=== PATIENT | female | born 1975 | race Caucasian/White ===

== ENCOUNTER 2021-03-10 20:06 | Emergency (ER) | payer OTHER ==
--- NOTE | 2021-03-10 20:49 | EDM.PDOC ---
ED HPI GENERAL MEDICAL PROBLEM - General Chief Complaint: Cardiovascular Problem Stated Complaint: HYPERTENSION, LIGHT HEADED Time Seen by Provider: 03/10/21 20:15 Source of Information: Reports: Patient History Limitations: Reports: No Limitations - History of Present Illness INITIAL COMMENTS - FREE TEXT/NARRATIVE: Patient states she is had a little bit of lightheadedness dull headache she rates about a 4 out of 10 to the back of her head may be a second or 2 of blurry vision that occurred yesterday the other symptoms have been ongoing since Sunday. She also mentions that she had a little bit of chest tightness on the left side that did not radiate anywhere that she rated about a 3 out of 10 yesterday none today she denies any shortness of breath nausea or vomiting diaphoresis. She states she is been seeing her chiropractor over the last month every couple days secondary to ongoing bladder issues where she is having her bladder realigned and is also done some spinal manipulation in her neck. She said none of the symptoms above have been caused from this. She says she has noted her blood pressure has been a little elevated the last couple of days 150/90-lena and she normally is in the 120 range. She also states that she has had some swelling to her ankles over the last 3 days. She has been eating normally but only drinking about 1 yeti cup of water a day. She has no medical issues takes no medication past surgical history includes a bladder sling She does not drink does not smoke Duration: Day(s): Location: Reports: Head, Chest Severity: Mild Improves with: Reports: None Worsens with: Reports: None Associated Symptoms: Reports: Chest Pain, Headaches. 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 Denies: Claudication, Dyspnea on Exertion, Orthopnea, Palpitations, PND, Syncope Endocrine: Reports: No Symptoms GI/Abdominal: Reports: No Symptoms : Reports: No Symptoms Musculoskeletal: Reports: No Symptoms Skin: Reports: No Symptoms Neurological: Reports: No Symptoms Psychiatric: Reports: No Symptoms Hematologic/Lymphatic: Reports: No Symptoms Immunologic: Reports: No Symptoms ED EXAM, GENERAL - Physical Exam Exam: See Below Exam Limited By: No Limitations General Appearance: Alert, WD/WN, No Apparent Distress Eye Exam: Bilateral Eye: EOMI, Normal Inspection, PERRL Ears: Normal External Exam, Normal Canal, Hearing Grossly Normal, Normal TMs Nose: Normal Inspection, Normal Mucosa, No Blood Throat/Mouth: Normal Inspection, Normal Lips, Normal Teeth, Normal Gums, Normal Oropharynx, Normal Voice, No Airway Compromise Head: Atraumatic, Normocephalic Neck: Normal Inspection, Supple, Non-Tender, Full Range of Motion. No: Carotid Bruit Respiratory/Chest: No Respiratory Distress, Lungs Clear, Normal Breath Sounds, No Accessory Muscle Use, Chest Non-Tender Cardiovascular: Normal Peripheral Pulses, Regular Rate, Rhythm, No Edema, No Gallop, No JVD, No Murmur, No Rub. No: Bradycardia, Tachycardia GI/Abdominal: Normal Bowel Sounds, Soft, Non-Tender, No Organomegaly, No Distention, No Abnormal Bruit Back Exam: Normal Inspection, Full Range of Motion Extremities: Normal Inspection, Normal Range of Motion, Non-Tender, Normal Capillary Refill, Pedal Edema, Other (+1 bilateral ankles). 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 EKG normal sinus rhythm no acute findings noted Urinalysis negative nitrites negative leukocytes negative protein there is noted some bacteria we will set of culture and sensitivity antibiotics are held at this time until pending culture and sensitivity returns. Patient given hydrochlorothiazide 25 mg 1 tablet p.o. now to see if this helps reduce blood pressure and lower extremity edema. Spoke with the patient she is okay with course of treatment diagnosis and disposition home She states she will follow-up with her primary care provider Blood pressure was rechecked 142/78 patient has no complaints Last Recorded V/S: Last Vital Signs Temp 36.8 C 03/10/21 20:09 Pulse 71 03/10/21 20:09 Resp 17 03/10/21 20:09 BP 157/87 H 03/10/21 20:09 Pulse Ox 99 03/10/21 20:09 - Orders/Labs/Meds Orders: Active Orders 24 hr Category Date Time Status EKG Documentation Completion [RC] ASDIRECTED Care 03/10/21 20:22 Active CULTURE URINE [RM] Stat Lab 03/10/21 21:21 Ordered EKG 12 Lead [EK] Stat Ther 03/10/21 20:22 Ordered Labs: Laboratory Tests 03/10/21 03/10/21 03/10/21 Range/Units 20:30 20:30 20:30 WBC 12.9 H (4.0-10.2) K/uL RBC 4.95 (3.77-5.09) M/uL Hgb 14.0 (11.7-15.5) g/dL Hct 41.5 (34.0-46.0) % MCV 83.8 L (84.0-98.0) fL MCH 28.3 (28.2-33.3) pg MCHC 33.7 (31.7-36.0) g/dL RDW 13.3 (11.2-14.1) % Plt Count 243 (150-350) K/uL Neut % (Auto) 60.0 (45.0-80.0) % Lymph % (Auto) 30.1 (10.0-50.0) % [place] % (Auto) 8.0 (2.0-14.0) % Eos % (Auto) 1.6 (0.0-5.0) % Baso % (Auto) 0.3 (0.0-2.0) % Neut # (Auto) 7.72 H (1.40-7.00) K/uL Lymph # (Auto) 3.87 H (0.50-3.50) K/uL [place] # (Auto) 1.03 H (0.00-1.00) K/uL Eos # (Auto) 0.21 (0.00-0.50) K/uL Baso # (Auto) 0.04 (0.00-0.20) K/uL Sodium 141 (136-145) mmol/L Potassium 4.0 (3.5-5.1) mmol/L Chloride 104 (98-107) mmol/L Carbon Dioxide 24.1 (21.0-32.0) mmol/L Anion Gap 12.9 (7-15) meq/L BUN 16 (7-18) mg/dL Creatinine 0.72 (0.51-1.17) mg/dL Est Cr Clr Drug Dosing 82.51 mL/min Estimated GFR (MDRD) > 60 mL/min Glucose 87 (70-99) mg/dL Calcium 9.1 (8.5-10.1) mg/dL Total Bilirubin 0.3 (0.2-1.0) mg/dL AST 15 (15-37) U/L ALT 31 (12-78) U/L Alkaline Phosphatase 60 (46-116) IU/L Troponin I 0.000 (0.000-0.056) ng/mL Total Protein 7.8 (6.4-8.2) g/dL Albumin 4.1 (3.4-5.0) g/dL Specimen Type Urine Color Urine Appearance Urine pH (5.0-9.0) Ur Specific [place] (1.005-1.030) Urine Protein (NEGATIVE) mg/dL Urine Glucose (UA) (NEGATIVE) mg/dL Urine Ketones (NEGATIVE) mg/dL Urine Occult Blood (NEGATIVE) Urine Nitrite (NEGATIVE) Urine Bilirubin (NEGATIVE) Urine Urobilinogen (0.2-1.0) E.U./dL Ur Leukocyte Esterase (NEGATIVE) Urine RBC /HPF Urine WBC /HPF Ur Epithelial Cells /LPF Urine Bacteria (NONE TO FEW) /HPF Urine Mucus (NEGATIVE) /LPF 03/10/21 Range/Units 20:55 WBC (4.0-10.2) K/uL RBC (3.77-5.09) M/uL Hgb (11.7-15.5) g/dL Hct (34.0-46.0) % MCV (84.0-98.0) fL MCH (28.2-33.3) pg MCHC (31.7-36.0) g/dL RDW (11.2-14.1) % Plt Count (150-350) K/uL Neut % (Auto) (45.0-80.0) % Lymph % (Auto) (10.0-50.0) % [place] % (Auto) (2.0-14.0) % Eos % (Auto) (0.0-5.0) % Baso % (Auto) (0.0-2.0) % Neut # (Auto) (1.40-7.00) K/uL Lymph # (Auto) (0.50-3.50) K/uL [place] # (Auto) (0.00-1.00) K/uL Eos # (Auto) (0.00-0.50) K/uL Baso # (Auto) (0.00-0.20) K/uL Sodium (136-145) mmol/L Potassium (3.5-5.1) mmol/L Chloride (98-107) mmol/L Carbon Dioxide (21.0-32.0) mmol/L Anion Gap (7-15) meq/L BUN (7-18) mg/dL Creatinine (0.51-1.17) mg/dL Est Cr Clr Drug Dosing mL/min Estimated GFR (MDRD) mL/min Glucose (70-99) mg/dL Calcium (8.5-10.1) mg/dL Total Bilirubin (0.2-1.0) mg/dL AST (15-37) U/L ALT (12-78) U/L Alkaline Phosphatase (46-116) IU/L Troponin I (0.000-0.056) ng/mL Total Protein (6.4-8.2) g/dL Albumin (3.4-5.0) g/dL Specimen Type Urinblad Urine Color Yellow Urine Appearance Slightly cloudy Urine pH 6.0 (5.0-9.0) Ur Specific [place] >= 1.030 (1.005-1.030) Urine Protein Negative (NEGATIVE) mg/dL Urine Glucose (UA) Negative (NEGATIVE) mg/dL Urine Ketones Negative (NEGATIVE) mg/dL Urine Occult Blood Trace-lysed H (NEGATIVE) Urine Nitrite Negative (NEGATIVE) Urine Bilirubin Negative (NEGATIVE) Urine Urobilinogen 0.2 (0.2-1.0) E.U./dL Ur Leukocyte Esterase Trace H (NEGATIVE) Urine RBC 0-5 /HPF Urine WBC 50-75 H /HPF Ur Epithelial Cells Moderate H /LPF Urine Bacteria Moderate H (NONE TO FEW) /HPF Urine Mucus Few H (NEGATIVE) /LPF Meds: Medications Discontinued Medications Generic Name Dose Route Start Last Admin Trade Name Della PRN Reason Stop Dose Admin Hydrochlorothiazide 25 mg 03/10/21 21:01 Hydrochlorothiazide 25 Mg Tab PO 03/10/21 21:02 ONETIME ONE Departure - Departure Time of Disposition: 21:25 Disposition: Home, Self-Care 01 Condition: Good Clinical Impression: Lightheadedness, Hypertension, Headache, Chest pain Instructions: Dizziness, [id number] Referrals: Yvan Weaver PA [Primary Care Provider] - Forms: ED Department Discharge Additional Instructions: Follow-up with your primary care provider in the next 24 to 48 hours Make sure you drink plenty of fluids I recommend 6 to 8 glasses of water a day Continue to check your blood pressure twice a day the same time every day for blood pressure log into you see your primary care provider Return to the emergency room if anything changes or gets worse Sepsis Event Note (ED) - Evaluation Sepsis Screening Result: No Definite Risk - Focused Exam Vital Signs: Vital Signs Temp Pulse Resp BP Pulse Ox 03/10/21 20:09 36.8 C 71 17 157/87 H 99 - Problem List & Annotations (1) Chest pain SNOMED Code(s): 58164183 Code(s): R07.9 - CHEST PAIN, UNSPECIFIED Status: Acute (2) Headache SNOMED Code(s): 68997938 Code(s): R51.9 - HEADACHE, UNSPECIFIED Status: Acute (3) Hypertension SNOMED Code(s): 82058801 Code(s): I10 - ESSENTIAL (PRIMARY) HYPERTENSION Status: Acute (4) Lightheadedness SNOMED Code(s): 920650155 Code(s): R42 - DIZZINESS AND GIDDINESS Status: Acute - My Orders Last 24 Hours: My Active Orders 03/10/21 20:22 EKG Documentation Completion [RC] ASDIRECTED EKG 12 Lead [EK] Stat 07/22/21 21:21 CULTURE URINE [RM] Stat - Assessment/Plan Last 24 Hours: My Active Orders 03/10/21 20:22 EKG Documentation Completion [RC] ASDIRECTED EKG 12 Lead [EK] Stat 03/10/21 21:21 CULTURE URINE [RM] Stat
[2021-03-10 20:56] LABS: ANION GAP 12.9 meq/L (7-15); CHLORIDE,CL 104 mmol/L (98-107); SODIUM,NA 141 mmol/L (136-145)
[2021-03-10] MEDS: Hydrochlorothiazide 25 MG Tab PO ONE (21:48)
--- NOTE | 2021-03-13 14:08 | PCM.SN.2 ---
- Free Text/Narrative Note: Patient urine culture returns with Staphylococcus aureus growth 50,000-100,000 CFU. patient is not on antibiotics. Multiple phone calls later, patient states she has some symptoms, gets frequent UTI, would like treatment, not allergic to anything. Given bactrim DS one tab bid for three days. Culture is sensitive to this. 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
== END 2021-03-10 21:50 | disposition home or self-care (01) ==
LOC: LL.ED 20:06
DX: R07.89 Other chest pain (principal); R42 Dizziness and giddiness; R51.9 Headache, unspecified; I10 Essential (primary) hypertension
CPT/HCPCS: 36415; 80053; 81001; 84484; 85025; 87086; 87186; 93005; 93010; 99284; 99285-25; A9270-GY

== ENCOUNTER 2021-06-06 18:06 | Emergency (ER) | payer OTHER ==
[2021-06-06] MEDS ORDERED: HYDROmorphone 1 MG/ML Syringe IM ONE (18:23)
--- NOTE | 2021-06-06 18:28 | EDM.PDOC ---
ED HPI GENERAL MEDICAL PROBLEM - General Chief Complaint: Laceration Stated Complaint: cut hand Time Seen by Provider: 06/06/21 18:20 Source of Information: Reports: Patient, Family History Limitations: Reports: No Limitations - History of Present Illness INITIAL COMMENTS - FREE TEXT/NARRATIVE: Patient presents to the Ed for right dorsal hand laceration. She was mowing and the security bar that her had just oiled was not secured and came down onto her right dorsal hand. report a laceration to the 2nd MCP area, some numbness to the finger and ability to move it slightly. Is right handed, otherwise healthy, states tetanus is up to date Onset: Today Duration: Minutes: Location: Reports: Upper Extremity, Right Treatments FISH BUTCHER: Reports: Cold Therapy, Dressing(s) - Related Data Allergies Allergy/AdvReac Type Severity Reaction Status Date / Time No Known Allergies Allergy Verified 06/06/21 18:15 Home Meds: Home Meds Hydrocodone/Acetaminophen [HYDROcodone-Acetaminophen 5-325 MG] 1 each PO Q6H PRN #10 tab 06/06/21 [Rx] Past Medical History - Past Health History Medical/Surgical History: Denies Medical/Surgical History Social & Family History - Tobacco Use Tobacco Use Status *Q: Never Tobacco User Second Hand Smoke Exposure: No - Caffeine Use Caffeine Use: Reports: Coffee, Energy Drinks, Soda Caffeine Use Comment: 2 coffee, 1 energy drink/week - Recreational Drug Use Recreational Drug Use: No ED ROS GENERAL - Review of Systems Review Of Systems: See Below Constitutional: Reports: No Symptoms HEENT: Reports: No Symptoms Respiratory: Reports: No Symptoms Cardiovascular: Reports: No Symptoms Endocrine: Reports: No Symptoms GI/Abdominal: Reports: No Symptoms : Reports: No Symptoms Musculoskeletal: Reports: Other (right 2nd finger pain and dorsal hand pain) Skin: Reports: Wound Neurological: Reports: No Symptoms Psychiatric: Reports: No Symptoms ED EXAM, SKIN/RASH Exam: See Below Exam Limited By: No Limitations General Appearance: Alert, WD/WN, No Apparent Distress Eye Exam: Bilateral Eye: EOMI, PERRL Ears: Normal External Exam Nose: Normal Inspection Throat/Mouth: Normal Voice, No Airway Compromise Head: Atraumatic Respiratory/Chest: No Respiratory Distress, Lungs Clear, Normal Breath Sounds Cardiovascular: Regular Rate, Rhythm, No Edema Extremities: Other (right hand with 5 cm laceration on dorsal aspect of the hand at 2nd MCP. limited motion of the 2nd finger due to pain. sensation intact distally both sides to light touch.. No other hand injury) Neurological: Alert, Oriented, CN II-XII Intact ED SKIN PROCEDURES - Laceration/Wound Repair Hand Appearance: Subcutaneous, Clean Distal NVT: Neuro & Vascular Intact, No Tendon Injury Anesthetic Type: Local Local Anesthesia - Lidocaine (Xylocaine): 1% Plain Local Anesthetic Volume: Other (8 cc) Skin Prep: Providone-Iodine (Betadine) Exploration/Debridement/Repair: Wound Explored, In a Bloodless Field, Explored to Base, Other (extensor tendon noted, examined through full rom. No invasion of the tendon sheath, appears intact. no foreign body. ) Closed with: Sutures Lac/Wound length In cm: 5 Suture Size: 4-0 # of Sutures: 6 (three horizontal mattress, three interrupted) Suture Type: Nylon Sterile Dressing Applied: Nurse Tetanus Status Addressed: Yes Complications: No Course - Vital Signs Last Recorded V/S: Last Vital Signs Temp 36.7 C 06/06/21 18:24 Pulse 63 06/06/21 18:24 Resp 20 06/06/21 18:24 BP 150/83 H 06/06/21 18:24 Pulse Ox 100 06/06/21 18:24 - Orders/Labs/Meds Orders: Active Orders 24 hr Category Date Time Status Hand Comp Min 3V Rt [CR] Stat Exams 06/06/21 18:23 Taken Meds: Medications Discontinued Medications Generic Name Dose Route Start Last Admin Trade Name Freq PRN Reason Stop Dose Admin Bacitracin 1 dose 06/06/21 19:53 06/06/21 19:56 Bacitracin Oint 1 Gm U/D Packet TOP 06/06/21 19:54 1 dose ONETIME ONE Administration Hydromorphone HCl 1 mg 06/06/21 18:23 06/06/21 18:44 Hydromorphone 1 Mg/Ml Syringe IM 06/06/21 18:24 1 mg ONETIME ONE Administration Lidocaine HCl 10 ml 06/06/21 18:23 06/06/21 18:45 Lidocaine 1% 5 Ml Sdv INJECT 06/06/21 18:24 10 ml ONETIME ONE Administration - Radiology Interpretation Free Text/Narrative:: no fracture seen on x-ray, soft tissue gas noted with open injury, preliminary report only - Re-Assessments/Exams Free Text/Narrative Re-Assessment/Exam: 06/06/21 18:27 will get an x-ray, given location, dilaudid im 1 mg for better evaluation 06/06/21 20:22 patient tolerated well. advised limited use of hand, sutures out in 14 days. return promptly for signs of infection. If limitation or weakness of motion noted,. close follow up with hand surgeon recommended but appears to not have tendon injury. Departure - Departure Time of Disposition: 19:53 Disposition: Home, Self-Care 01 Condition: Good Clinical Impression: Hand laceration, Hand contusion - Discharge Information Prescriptions: Hydrocodone/Acetaminophen [HYDROcodone-Acetaminophen 5-325 MG] 1 each PO Q6H PRN #10 tab PRN Reason: Pain Instructions: Laceration Care, Adult, Contusion, [id number] Referrals: Yvan Weaver PA [Primary Care Provider] - Forms: ED Department Discharge Additional Instructions: no fracture was seen. tendon appears intact. the area has 6 sutures that need to be removed in 2 weeks. Limit use of the finger/hand until they are removed. return promptly to the ED for hand redness, increased swelling or drainage. If you note limited ability to extend the finger not due to pain, follow up with a hand surgeon. You are given a small prescription of pain medication to use for sever pain. Keep area covered until sutures are out. Do not immerse in water, but can briefly wash hands Sepsis Event Note (ED) - Focused Exam Vital Signs: Vital Signs Temp Pulse Resp BP Pulse Ox 06/06/21 18:24 36.7 C 63 20 150/83 H 100 - My Orders Last 24 Hours: My Active Orders 06/06/21 18:23 Hand Comp Min 3V Rt [CR] Stat - Assessment/Plan Last 24 Hours: My Active Orders 06/06/21 18:23 Hand Comp Min 3V Rt [CR] Stat
[2021-06-06] MEDS ORDERED: Bacitracin Oint 1 GM U/D Packet TOP ONE (19:53)
== END 2021-06-06 20:05 | disposition home or self-care (01) ==
LOC: LL.ED 18:06
DX: S61.411A Laceration without foreign body of right hand, initial encounter (principal); W26.8XXA Contact with other sharp object(s), not elsewhere classified, initial encounter
CPT/HCPCS: 12002; 73130; 96372; 99283; J1170